=== PATIENT | female | born 1960 | race Caucasian/White ===

== ENCOUNTER 2020-09-12 07:34 | Outpatient (NON) | payer BC, SELFPAY ==
[2020-09-13 14:13] LABS: SARS-CoV-2 RNA PCR Positive
== END 2020-09-12 07:35 ==
LOC: ANHCOVIDDT 07:37
PROVIDERS: Visit Provider Nurse Practitioner Family
DX: U07.1 COVID-19 (principal)
CPT/HCPCS: 87635; C9803; U0003

== ENCOUNTER → 2022-01-03 10:19 | Outpatient (CLI) | payer BC, SELFPAY ==
--- NOTE | ~2022-01-03 | US_ITS ---
EXAMINATION: US thyroid DATE: 01/03/2022 10:38 INDICATION: Thyroid nodule. TECHNIQUE: Multiple ultrasound images of the thyroid were obtained. COMPARISON: None. FINDINGS: The right thyroid lobe measures 5.3 x 1.5 x 1.4 cm. The left thyroid lobe measures 4.8 x 2.1 x 2.5 c m. In the right thyroid lobe, there is a 3.0 cm predominantly solid, hypoechoic, avraq-wmdr-[id number] nod ule with smooth margin without echogenic foci (TI-RADS TR4). In the right thyroid lobe, there is a 1. 2 cm mixed cystic and solid, hypoechoic, pxhcz-abcb-[id number] nodule with ill-defined margin without echog enic foci (TR3). In the left thyroid lobe, there is a 1.8 cm mixed cystic and solid, hypoechoic, wide r-than-tall nodule with ill-defined margin without echogenic foci (TR3). IMPRESSION: 1. Multinodular goiter. Ultrasound-guided fine-needle aspiration of the 3.0 cm right thyroid nodule i s recommended. Reviewed, dictated and finalized at location A. [employer] IMPRESSION: 1. Multinodular goiter. Ultrasound-guided fine-needle aspiration of the 3.0 cm right thyroid nodule is recommended.
== END ==
PROVIDERS: Visit Provider Nurse Practitioner Family
DX: E04.2 Nontoxic multinodular goiter (principal)
CPT/HCPCS: 76536